=== PATIENT | male | born 1955 ===

== ENCOUNTER 2020-07-30 08:04 | Outpatient (REF) | payer MEDICARE, SELFPAY | END 2020-07-30 08:05 | disposition home or self-care (01) | LOC: HO.SCI 08:04 | PROVIDERS: Visit Provider Internal Medicine Cardiovascular Disease | DX: Z13.89 Encounter for screening for other disorder (principal) ==

== ENCOUNTER → 2020-09-09 19:30 | Outpatient (REF) | payer MEDICARE, MEDICAID, SELFPAY | LOC: HO.SL 19:30 | PROVIDERS: Visit Provider Internal Medicine Cardiovascular Disease | DX: G47.33 Obstructive sleep apnea (adult) (pediatric) (principal); R06.83 Snoring; G47.61 Periodic limb movement disorder | CPT/HCPCS: 95810 ==

== ENCOUNTER 2025-01-21 15:36 | Outpatient (REF) | payer MEDICARE, MEDICAID, SELFPAY ==
--- NOTE | ~2025-01-21 | XR_ITS ---
CLINICAL HISTORY: LT HAND PAIN Three views of the left hand. COMPARISON: None FINDINGS: Distal radius and ulna appear intact. Atherosclerotic vascular calcifications. Carpal bones appear intact. Degenerative changes of the 1st CMC joint with joint space narrowing and osteophytes. Metacarpals and phalanges appear intact. No lytic or sclerotic lesion. No periostitis. No erosions identified. IMPRESSION: 1. No radiographic evidence of acute injury to the left hand. 2. Mild degenerative changes of the left hand most pronounced of the 1st CMC joint. 3. Atherosclerotic vascular disease. This document has been electronically signed by: Vish Rothman MD on 01/22/2025 12:52:05
--- OUTSIDE RECORDS SUMMARY | 2025-01-21 18:36 | XMS_ITS | Encounter Summary ---
Author Organization [facility] Address [address] [place] [address] Phone Care Team Providers Care Mill Labor Supervisor Name Role Phone Tito Ng Primary Care Provider [phone] Reason for Visit * Reason Comments New Med Request Encounter Details Date Type Department Care Team (Late st Contact Info) Description 11/07/2023 Refill [facility] [address] [place] [phone] Eliecer Nicholas MD Social History Tobacco Use Types Packs/Day Years Used Date Smoking Tobacco: Never Smokeless Tobacco: Never Alcohol Use Standard Drinks/Week Comments Never 0 (1 standard drink = 0.6 oz pure alcohol) Alcoholic Drinks/day: Occasional social drink Sex and Gender Information Value Date Recorded Sex Assigned at Not on file Legal Sex Male 4:56 PM EST Gender Identity Not on file Sexual Orientation Not on file documented as of this encounter Miscellaneous Notes * Telephone Encounter - Francine Casillas - 11/10/2023 10:49 AM EST I spoke with Arun at [facility] and provided him the prescriber information on the requestedrefills. He will contact the patient to confirm physicians and forward the refill request to the correct office. * Telephone Encounter - Adarsh Kendrick MD - 11/09/2023 8:06 PM EST Flecaninide needs filled by diesel technician mechanic Unable to sign other medications. It is either refuse all or sign all documented in this encounter Plan of Treatment Upcoming Encounters Date Type Department Care Team (Late st Contact Info) Description 07/08/2025 2:15 PM EDT Office Visit [facility] [address] [id number] Amanda Marks ARNP [address] [phone] documented as of this encounter Visit Diagnoses Not on filedocumented in this encounter Care Teams Mill Labor Supervisor Relationship Specialty Start Date End Date Tito Ng DO [address] [place] [address] PCP - General 10/26/20 documented as of this encounter
--- OUTSIDE RECORDS SUMMARY | 2025-01-21 18:36 | XMS_ITS | Clinical Summary ---
Author Organization [facility] Address [address] [place] [address] Care Team Providers Care Piece Meat Trimmer Name Role Phone Tito Ng DO Primary Care Provider [phone] Surgical History Surgery Date Site/Laterality Comments CHOLECYSTECTOMY PROCEDURE: [place] LAPAROSCOPY SURG CHOLECYSTECTOMY OTHER SURGICAL HISTORY 1999 PROCEDURE: [place] COLECTOMY PARTIAL W/ANASTOMOSIS HERNIA REPAIR PROCEDURE: HISTORICAL HERNIA REPAIR/JOHN Medical History Medical History Date Comments Hyperlipidemia DX:Hyperlipidemi a Social History Tobacco Use Types Packs/Day Years Used Date Smoking Tobacco: Never Smokeless Tobacco: Never Alcohol Use Standard Drinks/Week Comments Yes 0 (1 standard drink = 0.6 oz pur e alcohol) Sex and Gender Information Value Date Recorded Sex Assigned at Not on file Legal Sex Male 8:10 PM EST Gender Identity Not on file Sexual Orientation Not on file Obstetrics History Plan of Treatment Health Maintenance Due Date Last Done Comments DTaP,Tdap,and Td Vaccines (1 - Tdap) 1974 Pneumococcal Vaccine: 50+ Ye ars (1 of 1 - PCV) 2005 Zoster Vaccines (1 of 2) 2005 Abdominal Aortic Aneurysm (A AA) Screen 09/24/2022 Cholesterol Screening (Lipid Panel) 09/24/2022 Depression Screening 09/24/2022 Falls Risk Assessment 09/24/2022 Hepatitis C Screening 09/24/2022 Social Influencers of Health Screening 09/24/2022 COVID-19 Vaccine (1 - 2023-2 5 season) 2024 Influenza Vaccine (#1) 2024 Colorectal Cancer Screening: Colonoscopy 01/19/2025 01/19/2022 RSV Immunization Adult Patie nts (1 - 1-dose 75+ series) 2030 HIB Vaccines Aged Out No longer eligi ble based on patient's age to complete this topic HPV Vaccines Aged Out No longer eligi ble based on patient's age to complete this topic Hepatitis A Vaccines Aged Out No long er eligible based on patient's age to complete this topic Hepatitis B Vaccines Aged Out No long er eligible based on patient's age to complete this topic IPV Vaccines Aged Out No longer eligi ble based on patient's age to complete this topic MMR Vaccines Aged Out No longer eligi ble based on patient's age to complete this topic Meningococcal ACWY Vaccine Aged Out N o longer eligible based on patient's age to complete this topic Meningococcal B Vaccine Aged Out No l onger eligible based on patient's age to complete this topic RSV Immunization Patients Un sunita 20 months Aged Out No longer eligible b ased on patient's age to complete this topic Varicella Vaccines Aged Out No longer eligible based on patient's age to complete this topic Care Teams Piece Meat Trimmer Relationship Specialty Start Date End Date Tito Ng DO [address] [place] [address] PCP - General 12/14/1996
--- OUTSIDE RECORDS SUMMARY | 2025-01-21 18:36 | XMS_ITS | Data Portability ---
Author Organization [place] - [facility], Allergy Address [address] [place] [address] Care Team Providers Care Motor Equipment Captain Name Role Phone KEERTHI SENA Primary Care Provider [phone] Assessment Encounter Date Assessment Date Assessment LastModified by Organization Details LastModified Time 04/02/2024 04/02/2024 Being seen today for sudden hearing loss with Dr Angelo [email or web address] Not available 04/02/2024 11:45:12 04/02/2024 04/02/2024 We discussed that the patient has experienced a sudden left-sided sensorineural hearing loss. I explained that this is idiopathic but thought to be due to a virally-mediated inflammatory phenomenon. We discussed that our recommended treatment plan typically includes a two week high dose oral prednisone taper and a series of 3 intratympanic dexamethasone injections. I explained the approximate 5% risk of persistent tympanic membrane perforation associated with IT injections. Side effects of oral steroids were discussed, including GI upset, irritability, and sleep disturbance. We discussed the rare complication of aseptic necrosis of the hip. An information sheet regarding oral steroids was given to the patient for their review at home. The patient expressed desire to proceed and the first IT dexamethasone injection which was done in the office today. A prescription for prednisone 60 mg per day followed by a five-day taper was sent to the pharmacy. The patient should follow water precaution. Patient will follow up in 1 week and 2 weeks for subsequent IT dexamethasone injections. In the meantime I will order MRI scan of the brain and internal auditory canals to rule out retrocochlear pathology as the cause of the sudden hearing loss. Not available 04/02/2024 12:39:58 04/09/2024 04/09/2024 Patient has tolerated second of 3 planned left intratympanic injections today. Patient will maintain dry ear precautions. Patient will follow-up in 1 week for third and final planned injection. We will review MRI results as they come available. [email or web address] Not available 04/08/2024 21:56:00 04/16/2024 04/16/2024 Audiometric testing today shows resolution of the sudden portion of the hearing loss in the left ear. The hearing in the left ear now is similar to the hearing in the right ear. No need to proceed with third intratympanic dexamethasone injection. His MRI scan is scheduled for later this week and I will call him with the results. No need to maintain dry ear precautions as the injection site has already healed. Hallpike testing negative for BPPV. He will contact me if he continues to have positionally induced vertigo. Not available 04/16/2024 17:26:50 Plan of Treatment Reminders Order Date Submit Date Provider Last Modified By Organization Details Last Modified Time Details Appointments None recorded. Lab None recorded. Referral None recorded. Procedures None recorded. Surgeries None recorded. Imaging MRI, brain + internal auditory canal, w/wo contrast - MRI, BRAIN + INTERNAL AUDITORY CANAL, W/WO CONTRAST 2023 024 [facility] ([facility]), [address] [place], [address], 14:33:02 Medication Orders prednisone 10 mg tablet 2023 024 [id number], [address] [place], [address], 12:10:27 Patient TargetsNo targets recorded. Patient InstructionsNo instructions recorded. Reason for Referral None Reported. Results Created Date Observation Date Name Description Value Unit Range Abnormal Flag Note LastModifiedBy Organization Detail LastModifiedTime 04/17/20 24 audio gram No observ ation record ed. BARCODE Not Available 2023 09:05:47 04/17/20 24 audio gram No observ ation record ed. BARCODE Not Available 2023 09:05:47 04/19/20 24 04/18/2024 MRI, brain + brain stem, w/wo contr ast [facility] Access ion Number : [id number] Eriberto womack Name: González Sheehan Record Number : [id number] Date of : 1954 Date of Exam: 2023 Referr ing Physic nohelia: Bryan Madden re [facility] [address] [place] [address] Exam: MR Brain (C-/C+ ) CPT 31932 Room Descri ption: [facility] Pion 3T MR Brain (C-/C+ ) CPT 35443 INDICA TION / CLINIC AL QUESTI ON: Reason For Exam: H9.21 - Sudden idiopa thic hearin g loss, right ear, H9.22 - Sudden idiopa thic hearin g loss, left ear, , MRI, BRAIN + RN REHABILITATION AL AUDITO RY CANAL, W/WO CONTRA ST\E E\[facility] (MRI, BRAIN + RN REHABILITATION AL AUDITO RY CANAL, W/WO CONTRA ST)Cli nical Indica tion: Sudden left sensor ineura l hearin g loss Reason For Exam: H9.21 - Sudden idiopa thic hearin g loss, right ear, H9. - Sudden idiopa thic hearin g loss, left ear, , MRI, BRAIN + RN REHABILITATION AL AUDITO RY CANAL, W/WO CONTRA ST\E E\[facility] (MRI, BRAIN + RN REHABILITATION AL AUDITO RY CANAL, W/WO CONTRA ST)Cli nical Indica tion: Sudden left sensor ineura l hearin g loss TECHNI QUE: MRI of the brain with attent ion to the sales management intern al audito ry canals was perfor med with and withou t contra st utiliz ing sagitt al T1, axial T2, 3D axial T2 CUBE, axial and galeano l T1, and post-c ontras t axial and galeano l T1-kristen ghted sequen nova. 20 mL Dotare m intrav enous contra st was admini stered . COMPAR MAJO: None. FINDIN GS: Image qualit y is degrad ed by motion . IAC: There is no mass or abnorm al enhanc ement in the sales management intern al audito ry canals or cerebe llopon deysi angles . Course and calibe r of the 7th and 8th crania l nerves is normal bilate rally. Fluid signal is preser valorie in the inner ear struct ures bilate rally. BRAIN and EXTRA- AXIAL SPACES : No signif icant abnorm ality of the visual ized portio ns of the brain and extra- axial spaces . EXTRAC RANIAL SOFT TISSUE S: Visual ized portio ns of the extrac ranial soft tissue s are unrema rkable . BONES: Visual ized marrow signal is preser valorie. IMPRES REUBEN: No retroc ochlea r abnorm ality to explai n the patien t?s sympto ms. Electr onical ly Signed By: Sarah [email or web address] [facility] ([facility]) [address] [place], [address], 04/23/2024 15:50:08 05/17/20 audio gram No observ ation record ed. BARCODE Not Available 2023 15:21:00 06/06/20 24 2022 imagi ng/di agnos tic resul t No observ ation record ed. [email or web address] Not Available 20:09:01 06/06/20 24 2022 audio gram No observ ation record ed. [email or web address] Not Available 20:09:11 Result Notes None recorded. Problems Name Problem SNOMED Code Status Onset Date Resolution Date Notes Provider Name and Address Organization Details Recorded Time [facility] [employer] [facility] 719609525 Active 2021 [facility] [employer] [facility] [employer]; Note: Date Diagnose d: 2022 2:39 PM (R42) Not Available [facility] 02:35:35 Sensorin eural hearing loss of bilatera l ears 001937255 Active 2021 Sensorin eural hearing loss, bilatera l; Note: Date Diagnose d: 2022 2:39 PM (H90.3) Not Available [facility] 02:35:31 Tinnitus of left ear 85579866202 06 Active 2023 RUBEN AQUINO, AUD [address] [facility],[place] [address], [place], [address] , [place] - [facility] 11:46:54 Sudden idiopath ic hearing loss 731284428 Completed 202304/16/2024 PAULA MADDEN MD [address] [facility] [address],[place] [address], [place], [address] , [place] - [facility] 17:24:11 Problem Notes None recorded. Procedures Surgical History Date Name Laterality Status Provider Name and Address Organization Details Recorded Time 04/16/20 24 Comp Audio with Tymps (55611 & 09773) completed SARAH MARKS [address] [facility],[place] [address], [place], [address], [place] - [facility] 04/16/2024 16:28:16 04/09/20 24 Intratympanic injection subsequent completed PAULA MADDEN MD [address] [facility],[address], [address], [place] - [facility] 04/09/2024 15:47:17 04/02/20 24 Comp Audio with Tymps (58687 & 88266) completed SARAH MARKS [address] [facility],[place] [address], [place], [address], [place] - [facility] 04/02/2024 11:44:37 04/02/20 24 Intratympanic injection initial left completed PAULA MADDEN MD [address] [facility],[address], [address], [place] - [facility] 04/02/2024 12:09:51 hernia repair completed Marcella Roman [place] - [facility] 04/02/2024 11:28:49 cholecystectomy completed Marcella Roman [place] - [facility] 04/02/2024 11:28:55 partial resection of colon completed Marcella Roman [place] - [facility] 04/02/2024 11:29:19 Imaging Results Imaging Date Name Status LastModified by Organiz ation Details LastModified Time 04/17/2024 audiogram completed BAR[facility] Information no t available 04/17/2024 09:05:47 04/17/2024 audiogram completed BARCODE Information no t available 04/17/2024 09:05:47 04/18/2024 MRI, brain + brain stem, w/wo contrast completed [email or web address] [facility] ([facility]) [address], [place], [address], 04/23/2024 15:50:08 05/17/2024 audiogram completed BARCODE Information no t available 05/17/2024 15:21:00 2022 imaging/diagno stic result completed Information not available 06/06/2024 20:09:01 2022 audiogram completed Information not available 06/06/2024 20:09:11 Procedure Notes None recorded. Medical Equipment None Reported. Allergies Allergen ID Allergen Name Allergen Category Reaction Reaction Severity Criticality Documentation Date Start Date Code Code System Note Provider Name and Address Organization Details Recorded Time 492910 bee pollen environme nt,medica tion Not available Not available Not available 04/02/2024 83214 7 RxNorm Marcella bolivar [place] - [facility] 4 11:27:56 71339 Product containin g penicilli n (product) medicatio n hives Not available Not available 02/27/2024 79804 8001 SNOMED React ion: Hives ; Not Available [facility] 4 00:58:44 Medications Name Sig Start Date Stop Date Status Note LastModified by Organization Details LastModified Time prednisone 10 mg tablet Take 6 tabs once a day for 9 days, then take 5 tabs on day 10, 4 tabs on day 11, 3 tabs on day 12, 2 tabs on day 13, and 1 tab on day 14 2023 active Not Available Not Available Not Avai lable atorvastat in 10 mg tablet active Medication ID: [id number] Bra muriel Name: atorvastat in Send Method: E-Prescrib ed Subs Allowed: subs OK Medicat ionGeneric Name: atorvastat in Not Available Not Available Not Available citalopram 20 mg tablet 04/02 completed Medication ID: [id number] Bra nd Name: citalopram Send Method: E-Prescrib ed Subs Allowed: subs OK Medicat ionGeneric Name: citalopram Medicatio n ID: [id number] Bra nd Name: citalopram Send Method: E-Prescrib ed Subs Allowed: subs OK Medicat ionGeneric Name: citalopram Not Available Not Available Not Available tamsulosin 0.4 mg capsule active Medication ID: [id number] Elly nd Name: tamsulosin Send Method: E-Prescrib ed Subs Allowed: subs OK Medicat ionGeneric Name: tamsulosin Not Available Not Available Not Available pantoprazo le 40 mg tablet,del ayed release active Medication ID: [id number] Elly nd Name: pantoprazo le Send Method: E-Prescrib ed Subs Allowed: subs OK Medicat ionGeneric Name: pantoprazo le Not Available Not Available Not Available flecainide 50 mg tablet active Medication ID: [id number] Elly nd Name: flecainide Send Method: E-Prescrib ed Subs Allowed: subs OK Medicat ionGeneric Name: flecainide Not Available Not Available Not Available colchicine 0.6 mg tablet 04/02 completed Medication ID: [id number] Elly nd Name: colchicine Send Method: E-Prescrib ed Subs Allowed: subs OK Medicat ionGeneric Name: colchicine Medicatio n ID: [id number] Bra nd Name: colchicine Send Method: E-Prescrib ed Subs Allowed: subs OK Medicat ionGeneric Name: colchicine Not Available Not Available Not Available loratadine 10 mg tablet active Medication ID: [id number] Elly nd Name: loratadine Send Method: E-Prescrib ed Subs Allowed: subs OK Special Instructio n: TAKE 1 TABLET BY MOUTH DAILY NEEDED Med icationGen ericName: loratadine Not Available Not Available Not Available metoprolol tartrate 25 mg tablet active Medication ID: [id number] Elly nd Name: metoprolol tartrate S end Method: E-Prescrib ed Subs Allowed: subs OK Medicat ionGeneric Name: metoprolol tartrate Not Available Not Available Not Available epinephrin e 0.3 mg/0.3 mL injection syringe active Medication ID: [id number] Elly nd Name: epinephrin e Send Method: E-Prescrib ed Subs Allowed: subs OK Medicat ionGeneric Name: epinephrin e Not Available Not Available Not Available Xarelto 20 mg tablet active Medication ID: [id number] Elly nd Name: Xarelto Se nd Method: E-Prescrib ed Subs Allowed: subs OK Medicat ionGeneric Name: Amparo Not Available Not Available Not Available Vitals Date Recorded Body height Body weight Systolic blood pressure Diastolic blood pressure Provider Name and Address Organization Details Last Updated DateTime 04/02/2024 172.72 cm 60362.47 g 120 mm[Hg] 82 mm[Hg] Marcella Roman [facility] 04/02/2024 12:24:59 Date Recorded Body height Body weight Provider Name and Address Organization Details Last Updated DateTime 04/09/2024 172.72 cm 79363.47 g Marcella Roman [place] [facility] 04/09/2024 15:40:16 Date Recorded Body height Body mass index (BMI) Body weight Provider Name and Address Organization Details Last Updated DateTime 04/16/2024 172.72 cm 30.4 kg/m2 30621.47 g Marcella Roman [facility] 04/16/2024 14:51:08 Social History None recorded. Functional Status None recorded. Mental Status None recorded. Family History Nothing Reported. Medical History Condition Response Anemia Y Arthritis Y Anxiety Y Sleep Disorder Y Emphysema Y Hyperlipidemia Y Depression Y Kidney Disease Y Past Encounters Encounter ID Performer Location Encounter Start Date Encounter Closed Date Diagnosis/Indication Diagnosis SNOMED-CT Code Diagnosis ICD10 Code Diagnosis Note [id number] PAULA MADDEN MD [facility] [address] [address] 04/02/2024 11:04:31 04/02/2024 12:37:53 Sudden idiopathic hearing loss 651328152 H91.21 H91.22 Sensorineu ral hearing loss of bilateral ears 274969548 H90.3 Audiologic al evaluation results: 04/02/2024 Right ear: {{Normal M ild Modera te Moderat avni-severe Severe Pr ofound Bor derline normal#}} {{hearing sloping to a mild slopi ng to a moderate* sloping to moderately severe slo ping to severe slo ping to profound f lat high frequency low frequency mid frequency cookie bite fernandez curve}} {{with sen sorineural hearing loss with* cond uctive hearing loss with mixed hearing loss with}} {{excellen t* good fa ir poor no t measurable }} word recognitio n. Left ear: {{Normal M ild* Moder ate Modera tely-sever e Severe P rofound}} {{hearing sloping to a mild slopi ng to a moderate* sloping to moderately severe slo ping to severe slo ping to profound f lat high frequency low frequency mid frequency cookie bite fernandez curve}} {{with sen sorineural hearing loss with* cond uctive hearing loss with mixed hearing loss with}} {{excellen t good* fa ir poor no t measurable }} word recognitio n. Tympanomet ry: Right Ear:{{Type A Type As* Type Ad Type C Type C, shallow & rounded Ty pe B Type B with large volume Cou ld not maintain a hermetic seal}} Left Ear:{{Type A* Type As Type Ad Type C Type C, shallow & rounded Ty pe B Type B with large volume Cou ld not maintain a hermetic seal}} Tinnitus of left ear 801 5351762 106 H93.12 [id number] SARAH MARKS [facility] [address] [place] [address] 04/02/2024 11:29:41 04/04/2024 12:32:31 Sensorineural hearing loss of bilateral ears 334459634 H90.3 Audiologic al evaluation results: 04/02/2024 Right ear: {{Normal M ild Modera te Moderat avni-severe Severe Pr ofound Bor derline normal#}} {{hearing sloping to a mild slopi ng to a moderate* sloping to moderately severe slo ping to severe slo ping to profound f lat high frequency low frequency mid frequency cookie bite fernandez curve}} {{with sen sorineural hearing loss with* cond uctive hearing loss with mixed hearing loss with}} {{excellen t* good fa ir poor no t measurable }} word recognitio n. Left ear: {{Normal M ild* Moder ate Modera tely-sever e Severe P rofound}} {{hearing sloping to a mild slopi ng to a moderate* sloping to moderately severe slo ping to severe slo ping to profound f lat high frequency low frequency mid frequency cookie bite fernandez curve}} {{with sen sorineural hearing loss with* cond uctive hearing loss with mixed hearing loss with}} {{excellen t good* fa ir poor no t measurable }} word recognitio n. Tympanomet ry: Right Ear:{{Type A Type As* Type Ad Type C Type C, shallow & rounded Ty pe B Type B with large volume Cou ld not maintain a hermetic seal}} Left Ear:{{Type A* Type As Type Ad Type C Type C, shallow & rounded Ty pe B Type B with large volume Cou ld not maintain a hermetic seal}} Tinnitus of left ear 647 2838880 106 H93.12 [id number] PAULA MADDEN MD [facility] [address] [place] [address] 04/09/2024 15:31:16 04/09/2024 16:31:43 Sudden idiopathic hearing loss 740068209 H91.22 Tinnitus of left ear 270 1206234 106 H93.12 [id number] PAULA MADDEN MD [facility] [address] [place] [address] 04/16/2024 14:48:32 04/16/2024 16:34:08 Sensorineural hearing loss of bilateral ears 618801586 H90.3 Audiologic al evaluation results: 04/02/2024 Right ear: {{Normal M ild Modera te Moderat avni-severe Severe Pr ofound Bor derline normal#}} {{hearing sloping to a mild slopi ng to a moderate* sloping to moderately severe slo ping to severe slo ping to profound f lat high frequency low frequency mid frequency cookie bite fernandez curve}} {{with sen sorineural hearing loss with* cond uctive hearing loss with mixed hearing loss with}} {{excellen t* good fa ir poor no t measurable }} word recognitio n. Left ear: {{Normal M ild* Moder ate Modera tely-sever e Severe P rofound}} {{hearing sloping to a mild slopi ng to a moderate* sloping to moderately severe slo ping to severe slo ping to profound f lat high frequency low frequency mid frequency cookie bite fernandez curve}} {{with sen sorineural hearing loss with* cond uctive hearing loss with mixed hearing loss with}} {{excellen t good* fa ir poor no t measurable }} word recognitio n. Tympanomet ry: Right Ear:{{Type A Type As* Type Ad Type C Type C, shallow & rounded Ty pe B Type B with large volume Cou ld not maintain a hermetic seal}} Left Ear:{{Type A* Type As Type Ad Type C Type C, shallow & rounded Ty pe B Type B with large volume Cou ld not maintain a hermetic seal}} Dizziness and giddiness 037718320 R42 [id number] RUBEN AQUINO, AUD [place] [address] [facility],[place] [address] [address] [place] [address] 04/16/2024 16:27:40 05/06/2024 15:16:39 Sensorineural hearing loss of bilateral ears 624008152 H90.3 Audiologic al evaluation results: 04/16/2024 Right ear:{{Norm al Mild Mo derate Mod erately-se astrid Sever e Profound Borderlin e normal#}} {{hearing sloping to a mild* slop ing to a moderate s loping to moderately severe slo ping to severe slo ping to profound f lat high frequency low frequency mid frequency cookie bite fernandez curve}} {{with sen sorineural hearing loss with* cond uctive hearing loss with mixed hearing loss with}} {{excellen t* good fa ir poor no t measurable }} word recognitio n.Left ear:{{Norm al Mild Mo derate Mod erately-se astrid Sever e Profound Borderlin e normal#}} {{hearing sloping to a mild* slop ing to a moderate s loping to moderately severe slo ping to severe slo ping to profound f lat high frequency low frequency mid frequency cookie bite fernandez curve}} {{with sen sorineural hearing loss with* cond uctive hearing loss with mixed hearing loss with}} {{excellen t good* fa ir poor no t measurable }} word recognitio n. Tympanomet ry:Right Ear:{{Type A Type As* Type Ad Type C Type C, shallow & rounded Ty pe B Type B with large volume Cou ld not maintain a hermetic seal}}Left Ear:{{Type A* Type As Type Ad Type C Type C, shallow & rounded Ty pe B Type B with large volume Cou ld not maintain a hermetic seal}} Health Concerns Section Related Observation LastModified by Organization Detai ls LastModified Time None Recorded Concern Status LastModified by Organization Details LastModified Time None Recorded Advance Directives Directive None Recorded Payers Encounter Date Sequence Insurance Name Policy Number Policy Bauman Covered Member ID Bauman Member ID Guarantor Name 04/02/2024 2 [place] González R Byers [id number] González R Byers 04/02/2024 1 [place] González R Bonilla [id number] González R Byers 04/02/2024 2 [place] González R Bonilla [id number] González R Byers 04/02/2024 1 [place] González R Bonilla [id number] González R Bonilla 04/09/2024 2 [place] González R Bonilla [id number] González R Bonilla 04/09/2024 1 [place] González R Bonilla [id number] González R Bonilla 04/16/2024 2 [place] González R Bonilla [id number] González R Bonilla 04/16/2024 1 [place] Gonzáelz R Bonilla [id number] González R Byers 04/16/2024 2 [place] González R Bonilla [id number] González R Byers 04/16/2024 1 [place] González R Byers [id number] González R Bonilla Notes Date Note Type Note Provider Name and Address Organization Details Recorded Time 04/02/2024 text/html Patient previous ly seen in our office back in May 2022 for evaluation of hearing loss. Audiometric testing at that time showed mild high-frequency sensorineural hearing loss bilaterally, and follow-up audiometric testing recommended in 1 year. Patient comes in today accompanied by his . He reports that 2 weeks ago he woke up with severe hearing loss in the left ear such that he could not hear anything. He reports that there has been partial recovery of the hearing in the left ear but the left ear is still worse than the right. He has new tinnitus in the left ear that sounds like a washing machine. No dizziness. PAULA MADDEN MD [address] [facility],[address], [address], [facility] 04/02/2024 12:44:34 04/09/2024 text/html Patient with a {{right left*}} sudden sensorineural hearing loss who is undergoing a series of 3 intratympanic dexamethasone injections. Patient comes in today for {{second of 3* third of 3}} planned intratympanic injections. Patient notes no pain or discharge from the ear. Patient {{has noticed no improvement* has noticed some improvement has noticed complete improvement}} in the hearing. MRI is ordered and is pending. Patient tolerating oral steroids without any significant side effects. Patient reports that he thinks there has been a partial improvement in his hearing, but certainly not back to normal. He is noticing a buzzing tinnitus. PAULA MADDEN MD [address] [facility],[address], [address], [facility] 04/09/2024 15:50:04 04/16/2024 text/html Patient with a {{right left*}} sudden sensorineural hearing loss who is undergoing a series of 3 intratympanic dexamethasone injections. Patient comes in today for {{second of 3 third of 3*}} planned intratympanic injections. Patient notes no pain or discharge from the ear. Patient {{has noticed no improvement has noticed some improvement has noticed complete improvement*}} in the hearing. MRI is ordered and is pending. Patient tolerated oral steroids without any significant side effects. Patient reports that he thinks there has been a big improvement in his hearing, back to normal. He is noticing a buzzing tinnitus. Patient did notice an episode of brief dizziness when he extended his neck significantly. PAULA MADDEN MD [address] [facility],[address], [phone], [facility] 04/16/2024 17:27:09 04/16/2024 text/html Hx sudden loss RUBEN AQUINO, [facility] [address] [facility] [address], [place], [phone], [facility] - [facility] 04/16/2024 16:30:58
--- OUTSIDE RECORDS SUMMARY | 2025-01-21 18:36 | XMS_ITS | Clinical Summary ---
Author Organization [facility] Address [address] [place] [address] Care Team Providers Care Cephalometric Technician Name Role Phone iTto Ng MD Primary Care Provider [phone] Allergies Active Allergy Reactions Criticality Noted Date Comments Penicillins Hives 05/09/2017 Medications Medication Sig Dispensed Refills Start Date End Date Status atorvastatin (LIPITOR) tablet 10 mg Take 10 mg by mouth every evening. 0 Active citalopram (CELEXA) 10 MG tablet Take 10 mg by mouth daily. 0 Active tamsulosin (FLOMAX) 0.4 MG CAPS Take 0.4 mg by mouth daily. 0 Active Loratadine (CLARITIN) 10 MG CAPS Take by mouth. 0 Active aspirin EC 81 MG tablet Take 81 mg by mouth daily. 0 Active Active Problems No known active problems Social History Tobacco Use Types Packs/Day Years Used Date Smoking Tobacco: Never Smokeless Tobacco: Never Alcohol Use Standard Drinks/Week Comments No 0 (1 standard drink = 0.6 oz pur e alcohol) Sex and Gender Information Value Date Recorded Sex Assigned at Not on file Gender Identity Not on file Sexual Orientation Not on file Last Filed Vital Signs Vital Sign Reading Time Taken Comments Blood Pressure 112/64 04/29/2019 9:27 AM EDT Pulse 98 04/29/2019 9:27 AM EDT Temperature 36.6 ??C (97.9 ??F) 04/29/2019 9:27 AM ED T Respiratory Rate - - Oxygen Saturation - - Inhaled Oxygen Concentration - - Weight 88.5 kg (195 lb) 04/29/2019 9:27 AM EDT Height 177.8 cm (5' 10 ) 04/29/2019 9:27 AM EDT Body Mass Index 27.98 04/29/2019 9:27 AM EDT Plan of Treatment Health Maintenance Due Date Last Done Comments Hepatitis C Screening 1955 COVID-19 Vaccine (#1) 1955 Depression Screening 1967 Preventative Health Evaluation 1973 DTap / Tdap / Td (1 - Tdap) 1974 Colon Cancer Screening (Colonoscopy) 2000 Shingrix-Zoster Vaccine (1 of 2) 2005 Fall Risk Assessment 2020 Pneumococcal Vaccine (1 of 1 - PCV) 2020 Influenza Vaccine (#1) 2024 RSV Adult > 60+ Yrs or Pregn ant (1 - 1-dose 75+ series) 2030 Hepatitis B Vaccines Aged Out No long er eligible based on patient's age to complete this topic RSV Ped < 20 months Aged Out No longe r eligible based on patient's age to complete this topic Care Teams Cephalometric Technician Relationship Specialty Start Date End Date Tito Ng MD [address] [place] [address] PCP - General Family Medicine 05/09/17
--- OUTSIDE RECORDS SUMMARY | 2025-01-21 18:36 | XMS_ITS | Clinical Summary ---
Author Organization [facility] Address [address] [address] Phone Care Team Providers Care Hoisting Engineer Name Role Phone Ng, Gary Kellen ALEGRIA Primary Care Provider [phone] Allergies Active Allergy Reactions Criticality Noted Date Comments Penicillins Hives 01/07/2025 Medications EPINEPHrine (EPIPEN) 0.3 MG/0.3ML injection syringe Active rivaroxaban (XARELTO) 20 MG tablet Take 20 mg by mouth 1 (one) time each day with dinner Active pantoprazole (PROTONIX) 40 MG EC tablet Take 40 mg by mouth 1 (one) time each day before breakfast Do not crush, chew, or split. Active atorvastatin (LIPITOR) 20 MG tablet Take 20 mg by mouth 1 (one) time each day Active sertraline (ZOLOFT) 50 MG tablet Take 50 mg by mouth in the morning and 50 mg in the evening. Active Vitamin D, Ergocalciferol , 50 MCG (2000 UT) capsule Take 1 tablet by mouth 1 (one) time each day Active Multiple Vitamin (multivitamin) capsule Take 1 capsule by mouth 1 (one) time each day Active tamsulosin (FLOMAX) 0.4 MG 24 hr capsule TAKE 1 CAPSULE BY MOUTH 1 TIME EACH DAY. 90 capsule 5 05/27/20 24 Active flecainide (TAMBOCOR) 50 MG tablet Take 2 tablets (100 mg total) by mouth in the morning and 2 tablets (100 mg total) in the evening. 360 tablet 3 11/19/19 25 026 Active montelukast (SINGULAIR) 10 MG tablet Take 10 mg by mouth 1 (one) time each day in the evening 11/15/19 Active Breo Ellipta 100-25 MCG/ACT aerosol powder INHALE 1 DOSE DAILY (SAME TIME EACH DAY) 12/09/19 Active propranolol (INDERAL) 40 MG tablet Take 1 tablet (40 mg total) by mouth in the morning and 1 tablet (40 mg total) in the evening. TAKE 1 TABLET BY MOUTH TWICE A DAY FOR 90 DAYS. 60 tablet 11 01/08/20 Active propranolol (INDERAL) 80 MG tablet Take 80 mg by mouth in the morning and 80 mg in the evening. TAKE 1 TABLET BY MOUTH TWICE A DAY FOR 90 DAYS. 10/30/19 025 Discontinued Active Problems Problem Noted Date Diagnosed Date Bradycardia 01/07/2025 Vitamin D deficiency, not otherwise specified Anemia in chronic kidney disease 07/10/2024 Prediabetes 08/26/2021 Stage 3a chronic kidney disease 08/26/2021 Portal vein thrombosis 08/26/2021 Urgent desire to urinate 01/24/2021 Renal insufficiency 01/24/2021 Hyperlipidemia 01/24/2021 Cyst of kidney 01/24/2021 Benign prostatic hyperplasia with outflow obstru ction 01/24/2021 Encounters Date Type Department Care Team Description 01/07/2025 1:00 PM EDT Office Visit [facility] [address] [phone] Amanda Marks ARNP Stage 3a chronic kidney disease (HCC) (Primary Dx); Anemia in chronic kidney disease; Bradycardia; Cyst of kidney; Vitamin D deficiency, not otherwise specified 12/14/2024 Orders Only [facility] [address] [phone] Amanda Marks ARNP Stage 3a chronic kidney disease (HCC); Anemia in chronic kidney disease 11/19/2024 Refill [facility] [place] [address] [phone] Tanner Sanon from Last 3 Months Family History Medical History Relation Comments Cancer Father Diabetes Mother Gout Mother Relation Status Comments Father Mother Social History Tobacco Use Types Packs/Day Years Used Date Smoking Tobacco: Never Smokeless Tobacco: Never Tobacco Cessation:Counseling Given: Not Answered Alcohol Use Standard Drinks/Week Comments Never 0 (1 standard drink = 0.6 oz pure alcohol) Alcoholic Drinks/day: Occasional social drink Sex and Gender Information Value Date Recorded Sex Assigned at Not on file Legal Sex Male 4:56 PM EST Gender Identity Not on file Sexual Orientation Not on file Last Filed Vital Signs Vital Sign Reading Time Taken Comments Blood Pressure 120/64 01/07/2025 1:00 PM EDT Pulse 40 01/07/2025 1:00 PM EDT Temperature - - Respiratory Rate - - Oxygen Saturation 97% 01/07/2025 1:00 PM EDT Inhaled Oxygen Concentration - - Weight 89.8 kg (198 lb) 01/07/2025 1:00 PM EDT Height 177.8 cm (5' 10 ) 07/17/2020 12:00 PM EDT Body Mass Index 28.41 07/17/2020 12:00 PM EDT Plan of Treatment Upcoming Encounters Date Type Department Care Team (Late st Contact Info) Description 07/08/2025 2:15 PM EDT Office Visit [facility] [address] [phone] Amanda Marks ARNP [address] [phone] Health Maintenance Due Date Last Done Comments Pneumococcal Vaccine: 65+ Ye ars (1 of 2 - PCV) 1961 Colorectal Cancer Screening: Annual FOBT 2004 Colorectal Cancer Screening: Colonoscopy 2004 Colorectal Cancer Screening: Sigmoidoscopy 2004 Influenza Vaccine (Season Ended) 2025 08/18/20 20 Hepatitis B Vaccine Aged Out No longe r eligible based on patient's age to complete this topic Procedures Procedure Name Priority Date/Time Associated Diagnosis Comments EXT RESULT ENTRY Routine 12/24/2024 from Last 3 Months Results * EXT RESULT ENTRY (12/24/2024) Sodium 140 137 - 147 Potassium 4.8 3.4 - 5.5 Carbon Dioxide 20 mmol/L BUN 20 4 - 21 mg/dL Creatinine 1.20 0.60 - 1.30 mg/dL Calcium 9.5 8.7 - 10.7 mg/dL eGFR Non-Afr [place] 65 12/24/2024 [facility] Provider LAB BLOOD ORDERABLES Sharyn l Result from Last 3 Months Insurance [place] Care Teams Hoisting Engineer Relationship Specialty Start Date End Date Tito Ng DO [address] [place] [address] PCP - General 10/26/20
== END 2025-01-21 15:37 | disposition home or self-care (01) ==
LOC: HO.XRAY 15:36
PROVIDERS: PCP Family Medicine; Visit Provider Registered Nurse
DX: M79.642 Pain in left hand (principal)
CPT/HCPCS: 73130

== ENCOUNTER → 2025-01-21 15:46 | Outpatient (BNV) | payer MEDICARE, MEDICAID, SELFPAY | PROVIDERS: PCP Family Medicine; Visit Provider Radiology Diagnostic Radiology | DX: M79.642 Pain in left hand (principal) | CPT/HCPCS: 73130 ==